=== PATIENT | female | born 1980 | race Caucasian/White ===

== ENCOUNTER 2018-06-01 15:18 | Outpatient (REF) | payer MEDICARE, SELFPAY ==
[2018-06-01 20:26] LABS: Abs Immature Grans 0.02 k/cumm (0.0-0.09); Absolute Basophil Count 0.05 k/cumm (0.0-0.2); Absolute Eosinophil Count 0.21 k/cumm (0.0-0.7); Absolute Lymphocyte Count 1.65 k/cumm (1.2-3.4); Absolute Monocyte Count 0.84 k/cumm (0.11-0.7); Basophils % 0.6; Eosinophils % 2.3; HCT 38.4 % (36.0-46.0); HGB 12.5 g/dL (12.0-15.5); Immature Grans % 0.2; Lymphocytes % 18.4; Mean Corp. HGB Concentration 32.6 g/dL (32.0-36.0); Mean Corpuscular Hemoglobin 27.5 pg (27.0-33.0); Mean Corpuscular Volume 84.4 fL (80-95); Mean Platelet Volume 12.2 fL (8.0-11.0); Monocytes % 9.4; Neutrophils % 69.1; Platelet Count 231 x1000/uL (130-400); RBC 4.55 m/cumm (4.00-5.20); RBC Distribution Width 14.5 % (11.7-14.6); White Blood Cell Count 8.97 k/cumm (4.4-10.8)
[2018-06-01 20:50] LABS: ALT 20 U/L (12-78); AST 15 U/L (15-37); Albumin 3.5 g/dL (3.4-5.0); Alkaline Phosphatase 115 U/L (46-116); Anion Gap 6.4 mmol/L (3-11); BUN 13 mg/dL (7-18); Bilirubin, Total 0.2 mg/dL (0.2-1.0); CO2 25.6 mmol/L (21.0-32.0); CREATININE 0.59 mg/dL (0.55-1.02); Calcium 8.5 mg/dL (8.5-10.1); Chloride 104 mmol/L (98-107); Glucose 90 mg/dL (70-100); Potassium 3.8 mmol/L (3.5-5.1); Sodium 136 mmol/L (136-145); TSH (W/Ref FT4) 0.93 uIU/mL (0.358-3.74); Total Protein 6.8 g/dL (6.4-8.2)
[2018-06-01 21:25] LABS: Hemoglobin A1C 5.4 % (4.5-6.2)
[2018-06-03 15:55] LABS: Lamotrigine <0.2 mcg/mL (2.5 - 15.0)
== END 2018-06-01 15:19 ==
LOC: NCHCN 15:18
PROVIDERS: PCP Family Medicine; Visit Provider Nurse Practitioner Family
DX: F25.9 Schizoaffective disorder, unspecified (principal); Z79.899 Other long term (current) drug therapy; Z51.81 Encounter for therapeutic drug level monitoring
CPT/HCPCS: 80053; 80175; 83036; 84443; 85025